=== PATIENT | male | born 1950 | race Caucasian/White ===

== ENCOUNTER → 2017-05-27 | Outpatient (CLI) | payer BC, MEDICARE ==
--- NOTE | 2017-05-28 00:57 | US ---
Procedure: US LOWER EXTREMITY VEINS LIMITED/UNILATERAL/FOLLOW UP Exam Date: 05/27/2017 Ordering Provider: Magnolia Del Rosario Clinical Indication: Left lower extremity pain and swelling Comparison: None Real time ultrasound was utilized for evaluation of the deep veins of the Left lower extremity. Color Doppler and pulse Doppler analysis was performed, including B-mode/grayscale imaging, Doppler spectral analysis and color flow analysis. Real time visualization of the left lower extremity deep veins was accomplished. Director Skills images recorded. The deep veins demonstrated no abnormal intraluminal signal. The pulse Doppler and color Doppler flow patterns demonstrated normal venous flow with respiratory variation. There was increased flow with distal augmentation maneuvers. IMPRESSION: There were no findings to suggest intraluminal clot or obstruction in the deep veins of the left lower extremity. Electronically signed by: Lisandro Bales MD 05/28/2017 12:56 AM CDT
== END | disposition home or self-care (01) ==
LOC: US 09:50
PROVIDERS: ATTEND Nurse Practitioner Family
DX: I87.2 Venous insufficiency (chronic) (peripheral) (principal)

== ENCOUNTER → 2018-05-12 | Outpatient (CLI) | payer BC | LOC: GMAM 11:03 | PROVIDERS: ATTEND Family Medicine | DX: Z12.5 Encounter for screening for malignant neoplasm of prostate (principal) ==

== ENCOUNTER → 2019-02-23 | Outpatient (CLI) | payer BC | LOC: GMAM 09:39 | PROVIDERS: ATTEND Family Medicine | DX: I10 Essential (primary) hypertension (principal) ==

== ENCOUNTER → 2020-04-11 | Outpatient (CLI) | payer BC | LOC: GMAM 10:50 | PROVIDERS: ATTEND Family Medicine | DX: E53.9 Vitamin B deficiency, unspecified (principal); E55.9 Vitamin D deficiency, unspecified; I10 Essential (primary) hypertension; E11.9 Type 2 diabetes mellitus without complications; E78.2 Mixed hyperlipidemia ==

== ENCOUNTER → 2020-11-24 | Outpatient (CLI) | payer BC | LOC: GMAM 14:33 | PROVIDERS: ATTEND Family Medicine | DX: E53.9 Vitamin B deficiency, unspecified (principal); E55.9 Vitamin D deficiency, unspecified; I10 Essential (primary) hypertension; E11.9 Type 2 diabetes mellitus without complications; E78.2 Mixed hyperlipidemia ==

== ENCOUNTER → 2020-12-12 | Outpatient (CLI) | payer BC ==
--- NOTE | 2020-12-13 12:36 | US ---
EXAM DESCRIPTION: Liver: ULTRASOUND. CLINICAL HISTORY: ABN LIVER FUNCTION STUDIES COMPARISON: None. TECHNIQUE: Transabdominal scannin-dimensional and Doppler modes. FINDINGS: Gallbladder: normal size, shape, echogenicity; no intraluminal stones or sludge. No fluid around the gallbladder. No wall thickening. 2.7 mm. Non-tender with transducer pressure. Common bile duct: caliber 5.4 mm within normal limits. Liver: Heterogeneously increased echogenicity; contour liver capsule smooth where seen. No fluid around the liver. Intrahepatic biliary ducts normal caliber. Doppler hepatopedal flow portal vein. 7.8 mm normal caliber. Long axis right lobe 16.0 cm Pancreas: Limited visualization due to density of the liver. Duct not seen. Right kidney: long axis measures 10.0 cm. Volume 167.6 ml. Cortical echogenicity normal.. Cortical thickness 12.5 mm. No echogenic stones; no hydronephrosis. Aorta proximal: 2.5 cm normal caliber. IMPRESSION: 1. Steatosis of the liver and mild enlargement. Physiologic vascularity and caliber ducts. Smooth capsule with no ascites. Limited visualization of the pancreas due to density of the liver. 2. Negative findings and the gallbladder, common bile duct, and right kidney. Normal caliber of the proximal abdominal aorta. Electronically signed by: Terry Pappas MD 12/13/2020 12:34 PM [facility]
== END ==
LOC: US 08:49
PROVIDERS: ATTEND Family Medicine
DX: K76.0 Fatty (change of) liver, not elsewhere classified (principal)